=== PATIENT | female | born 1935 | race Caucasian/White ===

== ENCOUNTER 2021-12-21 13:14 | Emergency (ER) | payer MEDICARE, OTHER ==
[2021-12-21 13:57] LABS: Bilirubin Neg (Negative); Blood, Urine Negative (Negative); Clarity Slightly Cloudy (Clear); Glucose, Urine (Dipstick) Normal (Negative); Ketone, Urine Negative (Negative); Leukocyte 500 (Negative); Nitrite Negative (Negative); Protein, Urine (Dipstick) Negative (Neg-Trace); Urobilinogen Normal mg/dL (Less than 2)
[2021-12-21 14:12] LABS: Bacteria/HPF Rare-Few HPF (None Seen); RBC/HPF 0-3 HPF (0-3); Squamous Epithelial 0-3 HPF (0-3)
== END 2021-12-21 16:03 | disposition home or self-care (01) ==
LOC: CSHERS 13:14
DX: N39.0 Urinary tract infection, site not specified (principal); E03.9 Hypothyroidism, unspecified; E78.5 Hyperlipidemia, unspecified; I10 Essential (primary) hypertension; M10.9 Gout, unspecified; Z86.73 Personal history of transient ischemic attack (TIA), and cerebral infarction without residual deficits; Z79.899 Other long term (current) drug therapy; Z79.82 Long term (current) use of aspirin
CPT/HCPCS: 81003; 81015; 99283

== ENCOUNTER 2021-12-25 14:21 | Inpatient (IN) | payer OTHER, MEDICAID, MEDICARE ==
[2021-12-25 15:01] VITALS: BMI 29.2
[2021-12-25] MEDS ORDERED: Sodium Chloride 0.9% 1,000 ML IV SCH (16:30)
[2021-12-25 17:39] LABS: Anion Gap 18 mmol/L (10-20); BUN (Urea Nitrogen) 29 mg/dL (9.8-20.1); Calc. Creatinine Clearance 34 mL/min (70-130); Carbon Dioxide 21 mmol/L (23-31); Chloride 77 mmol/L (98-107); Potassium 3.8 mmol/L (3.5-5.1)
[2021-12-25 17:40] LABS: Calcium 8.2 mg/dL (7.8-10.44); Glucose 109 mg/dL (83-110)
[2021-12-25 17:44] LABS: Sodium 112 mmol/L (136-145)
[2021-12-25] MEDS ORDERED: Metoprolol Tartrate 5 MG/5 ML VIAL IVP PRN (18:15)
[2021-12-25] MEDS: traMADol HCl 50 MG TAB PO PRN (18:27)
[2021-12-25] MEDS ORDERED: Sodium Chloride 3% 500 ML IVPB SCH ×2 (19:00→22:45)
[2021-12-25 21:22] LABS: Sodium 113 mmol/L (136-145)
[2021-12-25] MEDS: Heparin 5,000 UNITS/ML VIAL SC SCH (22:27)
[2021-12-25] MEDS: Icosapent Ethyl 1 GM CAPSULE PO SCH (22:27)
[2021-12-25] MEDS: Atorvastatin Calcium 10 MG TAB PO SCH (22:27)
[2021-12-25 23:16] LABS: SARS-CoV-2 NAA Rapid Test Not Detected (NotDetected)
[2021-12-25 23:22] LABS: Sodium 112 mmol/L (136-145)
[2021-12-25 23:50] LABS: SARS-CoV-2 PCR by NAA Not Detected (NotDetected)
[2021-12-26] MEDS ORDERED: Sodium Chloride 3% 100 ML IVPB SCH ×3 (00:30→05:30)
[2021-12-26 02:18] LABS: Sodium 115 mmol/L (136-145)
[2021-12-26 03:58] LABS: Anion Gap 18 mmol/L (10-20); BUN (Urea Nitrogen) 30 mg/dL (9.8-20.1); Calc. Creatinine Clearance 37 mL/min (70-130); Calcium 8.6 mg/dL (7.8-10.44); Carbon Dioxide 21 mmol/L (23-31); Chloride 81 mmol/L (98-107); Glucose 106 mg/dL (83-110); Potassium 3.6 mmol/L (3.5-5.1)
[2021-12-26 04:01] LABS: Sodium 116 mmol/L (136-145)
[2021-12-26 04:02] LABS: #Basophils 0.1 10x3/uL (0.0-0.2); #Eosinphils 0.1 10x3/uL (0.0-0.5); #Monocytes 1.6 10x3/uL (0.0-1.1); %Basophils 0.3 % (0.0-2.0); %Eosinophils 0.4 % (0.0-6.0); %Lymphocytes 19.2 % (18.0-47.0); %Monocytes 10.1 % (0.0-10.0); %Neutrophils 68.3 % (40.0-75.0); Hemoglobin 12.2 g/dL (12.0-15.5); Mean Corpuscular HGB CONC 36.6 g/dL (32.0-36.0); Mean Platelet Volume 9.2 fl (7.4-10.4); Platelet Count 383 10x3/uL (150-450); RBC Distribution Width 12.9 % (11.5-14.5); Red Blood Cell (RBC) Count 4.06 10x6/uL (3.90-5.03); White Blood Cell (WBC) Count 16.1 10x3/uL (3.5-10.5)
[2021-12-26] MEDS: Levothyroxine Sodium 100 MCG TAB PO SCH (05:59)
[2021-12-26] MEDS ORDERED: Sodium Chloride 1 GM TAB PO SCH (07:30)
[2021-12-26] MEDS: Amlodipine 5 MG TAB PO SCH (07:54)
[2021-12-26] MEDS: Aspirin 81 mg Enteric Coated Tablet PO SCH (07:54)
[2021-12-26] MEDS: Clopidogrel Bisulfate 75 MG TAB PO SCH (07:54)
[2021-12-26] MEDS: Heparin 5,000 UNITS/ML VIAL SC SCH ×3 (07:55→21:08)
[2021-12-26] MEDS: Icosapent Ethyl 1 GM CAPSULE PO SCH ×2 (08:03→21:07)
[2021-12-26 09:27] LABS: Sodium 119 mmol/L (136-145)
[2021-12-26] MEDS: Ondansetron PF 4 MG/2 ML Vial IVP PRN ×2 (09:39→14:33)
[2021-12-26] MEDS: cefTRIAXone\\ROCEPHIN 1 GM in Sodium Chloride 0.9% 100 ML IVPB SCH (10:13)
[2021-12-26] MEDS: Sodium Chloride 1 GM TAB PO SCH ×2 (12:03→18:28)
[2021-12-26] MEDS ORDERED: FLU VACC QS2021-22(65YR UP)/PF 240 MCG/0.7 ML SYRINGE IM ONE (15:15)
[2021-12-26] MEDS: traMADol HCl 50 MG TAB PO PRN (15:47)
[2021-12-26] MEDS ORDERED: Calcium Carbonate 500 MG ChewTAB PO PRN (15:52)
[2021-12-26] MEDS ORDERED: Mag-Al 1200 mg/1200 mg/30 ML UDCUP PO PRN (15:52)
[2021-12-26 16:08] LABS: Sodium 119 mmol/L (136-145)
[2021-12-26] MEDS: Atorvastatin Calcium 10 MG TAB PO SCH (21:07)
[2021-12-26 21:15] LABS: Sodium 117 mmol/L (136-145)
[2021-12-27] MEDS: Sodium Chloride 1 GM TAB PO SCH ×4 (00:03→18:41)
[2021-12-27] MEDS: Levothyroxine Sodium 100 MCG TAB PO SCH (05:35)
[2021-12-27 06:14] LABS: Anion Gap 15 mmol/L (10-20); BUN (Urea Nitrogen) 22 mg/dL (9.8-20.1); Calc. Creatinine Clearance 51 mL/min (70-130); Calcium 8.9 mg/dL (7.8-10.44); Carbon Dioxide 23 mmol/L (23-31); Chloride 86 mmol/L (98-107); Glucose 98 mg/dL (83-110); Potassium 3.7 mmol/L (3.5-5.1); Sodium 120 mmol/L (136-145)
[2021-12-27] MEDS: Aspirin 81 mg Enteric Coated Tablet PO SCH (08:38)
[2021-12-27] MEDS: Heparin 5,000 UNITS/ML VIAL SC SCH (08:38)
[2021-12-27] MEDS: Clopidogrel Bisulfate 75 MG TAB PO SCH (08:38)
[2021-12-27] MEDS: Icosapent Ethyl 1 GM CAPSULE PO SCH ×2 (08:38→20:45)
[2021-12-27] MEDS: Amlodipine 5 MG TAB PO SCH (08:38)
[2021-12-27] MEDS: Ondansetron PF 4 MG/2 ML Vial IVP PRN (09:22)
[2021-12-27] MEDS: cefTRIAXone\\ROCEPHIN 1 GM in Sodium Chloride 0.9% 100 ML IVPB SCH (09:22)
[2021-12-27 11:47] LABS: Sodium 120 mmol/L (136-145)
[2021-12-27 18:00] LABS: Anion Gap 14 mmol/L (10-20); BUN (Urea Nitrogen) 24 mg/dL (9.8-20.1); Calc. Creatinine Clearance 42 mL/min (70-130); Calcium 9.2 mg/dL (7.8-10.44); Carbon Dioxide 23 mmol/L (23-31); Chloride 87 mmol/L (98-107); Glucose 147 mg/dL (83-110); Magnesium 1.4 mg/dL (1.6-2.6); Potassium 3.4 mmol/L (3.5-5.1); Sodium 121 mmol/L (136-145)
[2021-12-27] MEDS: Atorvastatin Calcium 10 MG TAB PO SCH (20:42)
[2021-12-27] MEDS: Enoxaparin Sodium 40 MG/0.4 ML SYRINGE SC SCH (20:42)
[2021-12-28] MEDS: Sodium Chloride 1 GM TAB PO SCH ×3 (00:13→12:11)
[2021-12-28 04:08] LABS: #Basophils 0.1 10x3/uL (0.0-0.2); #Eosinphils 0.6 10x3/uL (0.0-0.5); #Monocytes 1.8 10x3/uL (0.0-1.1); #Neutrophils 8.4 10x3/uL (1.5-8.4); %Basophils 0.8 % (0.0-2.0); %Lymphocytes 23.2 % (18.0-47.0); %Monocytes 12.5 % (0.0-10.0); Hemoglobin 11.2 g/dL (12.0-15.5); Mean Corpuscular HGB CONC 34.5 g/dL (32.0-36.0); Mean Corpuscular Hemoglobin 29.9 pg (27.0-33.0); Mean Corpuscular Volume 86.9 fl (81.6-98.3); Mean Platelet Volume 9.3 fl (7.4-10.4); Platelet Count 330 10x3/uL (150-450); RBC Distribution Width 13.3 % (11.5-14.5); Red Blood Cell (RBC) Count 3.74 10x6/uL (3.90-5.03); White Blood Cell (WBC) Count 14.5 10x3/uL (3.5-10.5)
[2021-12-28 04:20] LABS: Anion Gap 13 mmol/L (10-20); BUN (Urea Nitrogen) 23 mg/dL (9.8-20.1); Calc. Creatinine Clearance 48 mL/min (70-130); Calcium 8.7 mg/dL (7.8-10.44); Carbon Dioxide 23 mmol/L (23-31); Chloride 92 mmol/L (98-107); Glucose 96 mg/dL (83-110); Potassium 3.2 mmol/L (3.5-5.1); Sodium 125 mmol/L (136-145)
[2021-12-28] MEDS: Levothyroxine Sodium 100 MCG TAB PO SCH (05:31)
[2021-12-28] MEDS: Amlodipine 5 MG TAB PO SCH (07:35)
[2021-12-28] MEDS: Aspirin 81 mg Enteric Coated Tablet PO SCH (07:35)
[2021-12-28] MEDS: Icosapent Ethyl 1 GM CAPSULE PO SCH ×2 (07:38→20:38)
[2021-12-28] MEDS: Clopidogrel Bisulfate 75 MG TAB PO SCH (07:38)
[2021-12-28] MEDS ORDERED: Potassium Chloride 20 MEQ TAB PO SCH (08:00)
[2021-12-28] MEDS ORDERED: SODIUM CHLORIDE 0.9% IVPB SCH (08:15)
[2021-12-28] MEDS ORDERED: MAGNESIUM IVPB SCH (08:15)
[2021-12-28] MEDS ORDERED: Milk Of Magnesia 30 ML UDCUP PO PRN (08:52)
[2021-12-28] MEDS ORDERED: Senokot S 8.6-50 MG TAB PO SCH (09:00)
[2021-12-28] MEDS: Polyethylene Glycol 3350 17 GM Packet PO SCH (09:08)
[2021-12-28] MEDS: cefTRIAXone\\ROCEPHIN 1 GM in Sodium Chloride 0.9% 100 ML IVPB SCH (12:11)
[2021-12-28] MEDS: Enoxaparin Sodium 40 MG/0.4 ML SYRINGE SC SCH (20:38)
[2021-12-28] MEDS: Atorvastatin Calcium 10 MG TAB PO SCH (20:38)
[2021-12-29 04:49] LABS: #Basophils 0.1 10x3/uL (0.0-0.2); #Eosinphils 0.5 10x3/uL (0.0-0.5); #Neutrophils 8.5 10x3/uL (1.5-8.4); %Basophils 0.8 % (0.0-2.0); %Eosinophils 3.2 % (0.0-6.0); %Lymphocytes 20.8 % (18.0-47.0); %Monocytes 13.9 % (0.0-10.0); %Neutrophils 59.8 % (40.0-75.0); Hemoglobin 11.1 g/dL (12.0-15.5); Mean Corpuscular HGB CONC 33.8 g/dL (32.0-36.0); Mean Corpuscular Hemoglobin 29.9 pg (27.0-33.0); Mean Corpuscular Volume 88.4 fl (81.6-98.3); Platelet Count 339 10x3/uL (150-450); RBC Distribution Width 13.5 % (11.5-14.5); Red Blood Cell (RBC) Count 3.71 10x6/uL (3.90-5.03); White Blood Cell (WBC) Count 14.2 10x3/uL (3.5-10.5)
[2021-12-29 04:59] LABS: Anion Gap 13 mmol/L (10-20); BUN (Urea Nitrogen) 25 mg/dL (9.8-20.1); Calc. Creatinine Clearance 46 mL/min (70-130); Calcium 9.4 mg/dL (7.8-10.44); Carbon Dioxide 24 mmol/L (23-31); Chloride 97 mmol/L (98-107); Glucose 101 mg/dL (83-110); Magnesium 2.1 mg/dL (1.6-2.6); Potassium 4.1 mmol/L (3.5-5.1); Sodium 130 mmol/L (136-145)
[2021-12-29] MEDS: Levothyroxine Sodium 100 MCG TAB PO SCH (05:33)
[2021-12-29] MEDS: Aspirin 81 mg Enteric Coated Tablet PO SCH (08:10)
[2021-12-29] MEDS: Polyethylene Glycol 3350 17 GM Packet PO SCH (08:10)
[2021-12-29] MEDS: Clopidogrel Bisulfate 75 MG TAB PO SCH (08:10)
[2021-12-29] MEDS: Icosapent Ethyl 1 GM CAPSULE PO SCH (08:10)
[2021-12-29] MEDS: Amlodipine 5 MG TAB PO SCH (08:11)
[2021-12-29 12:54] VITALS: BP 119/56; TEMP 98.1
== END 2021-12-29 15:00 | disposition home or self-care (01) | DRG 644 ==
LOC: CSHTELE 14:21 → CSHIMCU 23:52 → CSHTELE 12-27 16:31
PROVIDERS: ADMIT Internal Medicine; ATTEND Family Medicine
DX: E22.2 Syndrome of inappropriate secretion of antidiuretic hormone (principal); N39.0 Urinary tract infection, site not specified; N17.9 Acute kidney failure, unspecified; I25.10 Atherosclerotic heart disease of native coronary artery without angina pectoris; E78.00 Pure hypercholesterolemia, unspecified; E86.0 Dehydration; N18.30 Chronic kidney disease, stage 3 unspecified; D63.1 Anemia in chronic kidney disease; E87.5 Hyperkalemia; K21.9 Gastro-esophageal reflux disease without esophagitis; E03.9 Hypothyroidism, unspecified; E83.42 Hypomagnesemia; N31.9 Neuromuscular dysfunction of bladder, unspecified; D72.829 Elevated white blood cell count, unspecified; Z20.822 Contact with and (suspected) exposure to COVID-19; Z90.710 Acquired absence of both cervix and uterus; Z90.49 Acquired absence of other specified parts of digestive tract; Z86.73 Personal history of transient ischemic attack (TIA), and cerebral infarction without residual deficits; Z95.5 Presence of coronary angioplasty implant and graft; Z88.2 Allergy status to sulfonamides; Z79.82 Long term (current) use of aspirin; Z79.899 Other long term (current) drug therapy
CPT/HCPCS: 36415; 71045; 76770; 80048; 83735; 83930; 83935; 84300; 84439; 84443; 85025; J0696; J1644; J1650; J2405; J3475; J3490; J7131; U0002; U0003; U0005